=== PATIENT | female | born 1965 | race Two or more races ===

== ENCOUNTER → 2019-02-05 | Day surgery (SDC) | payer OTHER ==
[~2019-02-05] MED LIST: B COMPLEX; BIOTIN; BIOTIN2500 MCG PO; CALCIUM600 MG PO; Calcium; FLONASE; LIDOCAINE HCL 2% LOCAL INJ 5 ML SDV VIAL INJ ONE; MIDAZOLAM HCL 2 MG/2 ML VIAL ONE; MULTI-VITAMIN1 EACH PO; MULTIVITAMIN; PANTOPRAZOLE SO40 MG PO; PREMARIN PO; PREMARIN0.3 MG PO; PROPOFOL IV EMULSION 10 MG/ML 50 ML VIAL ONE; RELIZEN PO; SIMVASTATIN40 MG PO; SUPER B PO; VITAMIN C500 M1 PO; ZYRTEC
--- OUTSIDE RECORDS SUMMARY | 2019-02-05 06:25 | XMS REPORT ---
Author Author [facility] Address Unknown Phone Unavailable Care Team Providers Care Floral Artist Name Role Phone Unavailable Unavailable Problems This patient has no known problems. Allergies, Adverse Reactions, Alerts This patient has no known allergies or adverse reactions. Medications This patient has no known medications. Results Test Description Test Time Test Comments Text Results Atomic Results Result Comments SCR MAMM BILATERAL RIVAS CAD DIGITAL W/AUGMENTATION 2019-01-25 13:01:20 - SCR MAMM BILATERAL RIVAS CAD DIGITAL W/AUGMENTATIONBILATERAL DIGITAL SCREENING MAMMOGRAM 3D/2D WITH CAD WITH AUGMENTATION: 01/24/2019CLINICAL: Asymptomatic. Digital breast tomosynthesis was performed in addition to routine CC and MLO views. Current mammographic images were evaluated by either a Contur M-Vu or a Parkzzz ImageChecker CAD (computer aided detection system). Comparison is made to exams dated 12/14/2016 mammogram, 11/23/2016 mammogram, 11/02/2015 mammogram, and 09/07/2014 mammogram - [facility]. The tissue of both breasts is heterogeneously dense. This may lower the sensitivity of mammography. Bilateral retropectoral silicone breast implants are noted which obscured a portion of the breast parenchyma limiting evaluation. No suspicious mass, architectural distortion, malignant type calcification, or lymph node abnormality detected. Breast architecture is stable compared to prior exams.IMPRESSION: BENIGNThere is no mammographic evidence of malignancy. Resume annual screening mammography in one year. Bushra Dietrich MD hs/:01/25/2019 13:01:20 Law Examiner: Ree KRISHNA, [facility] sent: BIRADS 1-2 Normal Mammogram BI-RADS: 2 Benign
[2019-02-05 10:03] VITALS: BP 127/75
--- NOTE | 2019-02-05 16:36 | Operative Report ---
DATE OF PROCEDURE: 02/05/2019 SURGEON: Michele Hammond MD PROCEDURE: EGD with biopsies. INDICATIONS FOR EGD: Acid reflux. MEDICATIONS: The patient was done under MAC, please see anesthesiologist's note. PROCEDURE IN DETAIL: With the patient in left lateral decubitus position, a flexible fiberoptic Olympus gastroscope was introduced into the esophagus under direct visualization without any difficulty. There was some patchy erythema noted in distal esophagus. The GE junction appeared somewhat nodular and that was biopsied. The scope was then advanced with ease into the stomach traversing a small sliding hiatal hernia. Mucosa overlying the antrum and the body revealed some patchy erythema and low-grade to moderate edema, and biopsies were obtained and sent to stain for H. pylori. A minute polyp was noted in the body of the stomach and that was removed per the cold biopsy forceps. Pylorus appeared to be of normal contour and shape, it was intubated with ease and the scope was advanced all the way to the second portion of the duodenum. Biopsies were obtained from the proximal second portion and duodenal bulb to rule out sprue. The scope was then withdrawn back into the stomach and retroflexed, and mucosa overlying the fundus and the cardia appeared to be within normal limits. The scope was then straightened out, it was subsequently withdrawn, and the patient tolerated the procedure well. IMPRESSION: 1. Distal esophagitis, mild. 2. GE junction somewhat nodular, biopsied. 3. Small sliding hiatal hernia. 4. Gastritis, biopsied, biopsies sent to stain for Helicobacter pylori. 5. Gastric polyp, minute, body of stomach, removed per biopsy forceps per cold biopsy forceps. 6. Rule out sprue. PLAN: Follow up histology. Increase Protonix to 40 mg 1 p.o. before meals b.i.d. Michele Hammond MD [facility] [place]/LAEXANDRA /[id number] cc: Aditya Zuñiga DO
== END | disposition home or self-care (01) ==
LOC: OR 06:23
PROVIDERS: ATTEND Internal Medicine Gastroenterology
DX: K21.9 Gastro-esophageal reflux disease without esophagitis (principal); R11.2 Nausea with vomiting, unspecified; K20.9 Esophagitis, unspecified; K44.9 Diaphragmatic hernia without obstruction or gangrene; K29.70 Gastritis, unspecified, without bleeding; K31.7 Polyp of stomach and duodenum; Z68.27 Body mass index [BMI] 27.0-27.9, adult; Z01.810 Encounter for preprocedural cardiovascular examination
CPT/HCPCS: 43239; 93005; J2001; J2250; J2704

== ENCOUNTER → 2019-04-03 | Day surgery (SDC) | payer OTHER ==
[~2019-04-03] MED LIST changes: +BUPIVACAINE HCL 0.5% INJ 30 ML VIAL INJ ONE; +DEXAMETHASONE SOD PHOS INJ 4 MG/ML VIAL ONE; +FENTANYL CITRATE/PF 100MCG/2 ML INJ ONE; +KETOROLAC TROMETHAMINE 30 MG/ML VIAL ONE; +ONDANSETRON HCL INJ 2MG/ML 2ML 2 MG/ML VIAL ONE; +PROPOFOL IV EMULSION 10 MG/ML 20 ML VIAL ONE; -PROPOFOL IV EMULSION 10 MG/ML 50 ML VIAL ONE; +SEVOFLURANE INHAL SOLN 250 ML PEN BTL ONE
[2019-04-03] MEDS: CEFAZOLIN SOD 1 GM/NS 50ML 50 ML IV ONE (05:57)
[2019-04-03] MEDS: ONDANSETRON HCL INJ 2MG/ML 2ML 2 MG/ML VIAL ONE (07:36)
[2019-04-03] MEDS: METOCLOPRAMIDE HCL 10 MG/2ML VIAL ONE (07:36)
[2019-04-03 08:15] VITALS: BP 113/74
--- NOTE | 2019-04-03 13:26 | Operative Report ---
DATE OF PROCEDURE: 04/03/2019 SURGEON: Aysha Gore DPM PREOPERATIVE DIAGNOSIS: Right 5th metatarsal fracture. POSTOPERATIVE DIAGNOSIS: Right 5th metatarsal fracture. PLANNED PROCEDURE: Right 5th metatarsal ORIF. SURGEON: Trina Murray DPM (Charley) LEAF STICKER: Aysha Gore DPM ANESTHESIA: General with a postoperative block consisting of 10 mL of 0.5% Marcaine plain. HEMOSTASIS: Pneumatic thigh tourniquet set at 350 mmHg for a total time approximately 30 minutes. MATERIALS: One 2.0 four-hole plate, two 2.0 mm screws x 12 mm screws. 2-0 Vicryl, 3-0 Vicryl, 4-0 Prolene. ESTIMATED BLOOD LOSS: Less than 10 mL. PATHOLOGY: None. PROCEDURE NOTE: The patient was seen in the preoperative waiting room with the correct procedure and site was identified. The patient was brought to the operating room and placed on the operating table in supine position. General anesthesia was initiated. At this time, a well-padded pneumatic tourniquet was placed about the patient's right thigh. Attention was directed to the right 5th metatarsal, where a 5 cm linear incision was made directly over the 5th metatarsal midshaft to the metatarsophalangeal joint. The incision was carried through subcutaneous tissue them from deep or underlying structures. All vital neurovascular structures were identified, retracted medially and laterally, and all bleeders were cauterized or ligated as deemed necessary. At this point, the fracture was easily identified with large hematoma and comminuted fragments noted. Utilizing a [place] elevator, bone flap, and techniques of distraction, manipulation that the fracture site was reduced, pulled distally, reduced with a bone clamp. It was temporarily fixated with a four-hole plate and K-wires. Two 2.0 mm x 12 mm cortical bone screws were placed, one proximal to the fracture site, one distal to the fracture site. The central 2 holes were left empty due to poor bone quality. Utilizing intraoperative fluoroscopy, there was noted to be good reduction to the fracture site and good anatomic alignment. The wound was then copiously irrigated with sterile saline. Capsule and deep tissue reapproximated with 3-0 Vicryl, subcutaneous tissue with 3-0 Vicryl, and the skin was closed using a running interlocking stitch with 4-0 Prolene. Incision site was then dressed with Adaptic, 4x4s, Kerlix, Webril, 4 x 30 posterior splint, and 4-inch Nicolas wrap and 6-inch Nicolas wrap. The patient tolerated the procedure and anesthesia well. The patient was transferred to the postoperative recovery with vital signs stable and vascular status intact. The patient was monitored for short period of time before being sent home with the following written and oral instructions: 1. Keep the dressing clean, dry, and intact. 2. The patient is to remain nonweightbearing to the right lower extremity with posterior splint and crutches to avoid any ambulation until being seen in the office. 3. The patient was given office number and instructed to contact us if any problems arise. FOREST Flores/ALEXANDRA /[id number]
== END | disposition home or self-care (01) ==
LOC: OR 05:13
PROVIDERS: ATTEND Podiatrist Foot & Ankle Surgery
DX: S92.351A Displaced fracture of fifth metatarsal bone, right foot, initial encounter for closed fracture (principal); E78.00 Pure hypercholesterolemia, unspecified; K21.9 Gastro-esophageal reflux disease without esophagitis; X58.XXXA Exposure to other specified factors, initial encounter
CPT/HCPCS: 28485; C1713 ×2; J0690; J1100; J1885; J2001; J2250; J2405; J2704; J2765; J3010